=== PATIENT | male | born 1960 | race Hispanic/Latino ===

== ENCOUNTER 2020-11-25 14:17 | Emergency (ER) | payer OTHER ==
[~2020-11-25] VITALS: Ht 172.7 cm; Wt 72.1 kg
[2020-11-25] MEDS ORDERED: AUGMENTIN 875-1 EACH PO (17:26)
== END 2020-11-25 17:57 | disposition home or self-care (01) ==
LOC: ED 14:17 → MS 14:19 → ED 14:19
DX: L03.213 Periorbital cellulitis (principal); L02.01 Cutaneous abscess of face; L73.9 Follicular disorder, unspecified
CPT/HCPCS: 10060; 70487; 71045; 80053; 83605; 85025; 99284-25; J0295; J7030; Q9967